=== PATIENT | male | born 1945 | race Caucasian/White ===

== ENCOUNTER → 2023-09-28 | Outpatient (CLI) | payer MEDICARE | END | disposition home or self-care (01) | LOC: SHCH 10:12 | PROVIDERS: ATTEND Internal Medicine Cardiovascular Disease | DX: I87.2 Venous insufficiency (chronic) (peripheral) (principal); I73.9 Peripheral vascular disease, unspecified | CPT/HCPCS: 93925; 93970 ==

== ENCOUNTER 2024-03-12 07:30 | Day surgery (SDC) | payer MEDICARE ==
[2024-03-07 13:20] LABS: CREATININE 0.8 mg/dL (0.5-1.3); POTASSIUM 4.8 mmol/L (3.5-5.1)
[2024-03-07 13:21] LABS: BASOPHILS # (AUTO) 0.07 K/uL (0.00-0.20); BASOPHILS % (AUTO) 1.7 % (0.0-5.0); EOSINOPHILS # (AUTO) 0.19 K/uL (0.00-0.70); EOSINOPHILS % (AUTO) 4.5 % (0.0-8.0); HEMATOCRIT 42.1 % (42-54); IMMATURE GRANULOCYTE ABSOLUTE 0.01 K/uL (0-1); LYMPHOCYTES # (AUTO) 1.1 K/uL (1.0-4.8); LYMPHOCYTES % (AUTO) 25.3 % (21.0-51.0); MEAN CORPUSCULAR HEMOGLOBIN 32.9 pg (27.0-33.0); MEAN CORPUSCULAR HGB CONC 33.3 g/dL (32.0-36.0); MEAN CORPUSCULAR VOLUME 98.8 fL (79-99); MONOCYTES # (AUTO) 0.3 K/uL (0.1-1.0); MONOCYTES % (AUTO) 7.4 % (3.0-13.0); NEUTROPHILS # (AUTO) 2.6 K/uL (1.8-7.7); NEUTROPHILS % (AUTO) 60.9 % (40.0-77.0); PLATELET COUNT (AUTO) 135 K/uL (130-400); RED BLOOD CELL COUNT(AUTO) 4.26 MIL/uL (4.50-6.20); RED CELL DISTRIBUTION WIDTH 14.2 % (11.0-15.5); WHITE BLOOD COUNT (AUTO) 4.2 K/uL (4.8-10.8)
[2024-03-07 13:22] VITALS: BP 111/65; PULSE 65; RESP 17
[2024-03-07 13:22] LABS: INR 1.16 (0.85-1.15); PROTHROMBIN TIME 13.5 SEC (9.6-11.6)
[~2024-03-12] VITALS: Ht 182.9 cm; Wt 81.7 kg
[2024-03-12] VITALS (18 sets, daily range): BP systolic 112–129; BP diastolic 72–86; PULSE 61–98; RESP 13–18
[~2024-03-12 07:30] MED LIST: LEVE500T19 PO; METO50 PO
[2024-03-12] MEDS ORDERED: LACTATED RINGERS 1000ML 1,000 ML IV ONE (08:46)
[2024-03-12] MEDS ORDERED: CEFAZOLIN SODIUM 2 GM VIAL ONE (08:46)
[2024-03-12] MEDS ORDERED: ACETAMINOPHEN 1,000 MG/100 ML VIAL IV ONE (08:55)
[2024-03-12] MEDS ORDERED: FAMOTIDINE 20MG VIAL IV ONE (08:55)
[2024-03-12] MEDS ORDERED: PROPOFOL 10 MG/ML 20ML VIAL IV ONE (08:59)
[2024-03-12] MEDS ORDERED: LIDOCAINE PF 100MG/5ML (2%) SYRINGE 5ML ONE (08:59)
[2024-03-12] MEDS ORDERED: ROCURONIUM BROMIDE 10MG/1ML 5ML VL ONE (08:59)
[2024-03-12] MEDS ORDERED: FENTANYL CITRATE PF 50 MCG/1 ML 2ML VIAL ONE (09:00)
[2024-03-12] MEDS ORDERED: BUPIVACAINE/PF 0.5% 30ML VIAL ONE (09:03)
[2024-03-12] MEDS ORDERED: DEXAMETHASONE SOD PHOSPHATE 10MG/ML 1ML VIAL ONE (09:27)
[2024-03-12] MEDS ORDERED: ONDANSETRON 4MG INJ ONE (09:27)
[2024-03-12] MEDS: CEFAZOLIN SODIUM 2 GM VIAL IVPB ONE (09:40)
[2024-03-12] MEDS ORDERED: EPHEDRINE SULFATE 50 MG/ML AMPULE ONE (09:42)
[2024-03-12] MEDS ORDERED: GLYCOPYRROLATE 0.2 MG/ML 5 ML VIAL ONE (09:46)
[2024-03-12] MEDS ORDERED: NEOSTIGMINE METHYLSULFATE 1MG/ML IV ONE (09:46)
[2024-03-12] MEDS ORDERED: PHENYLEPHRINE HCL 10 MG/ML 1ML VIAL IV ONE (10:39)
[2024-03-12] MEDS ORDERED: METOPROLOL TARTRATE 1 MG/ML 5ML VIAL IV ONE ×2 (10:43→11:01)
[2024-03-12] MEDS ORDERED: DOCU-116 PO (10:49)
[2024-03-12] MEDS ORDERED: TRAM50TA4 PO (10:49)
[2024-03-12] MEDS ORDERED: METH-662 PO (10:49)
[2024-03-12] MEDS ORDERED: GABA-529 PO (10:49)
== END 2024-03-12 13:01 | disposition home or self-care (01) ==
LOC: DAH 07:30
PROVIDERS: ATTEND Surgery
DX: K40.90 Unilateral inguinal hernia, without obstruction or gangrene, not specified as recurrent (principal); I10 Essential (primary) hypertension; I48.91 Unspecified atrial fibrillation; Z79.01 Long term (current) use of anticoagulants; Z79.899 Other long term (current) drug therapy
CPT/HCPCS: 80048; 85025; 85610; 85730; 36415; 93005; 49650; A6260; A4663; J7030; J7120; J3490 ×7; J3010; J1100; J2001; J2704; J2405; J2710; J0665; J2371; J0690 ×2; C9250; A4649 ×3; A4930 ×2; C1781; A4215; A4223; A4222; A4221; A4600

== ENCOUNTER → 2024-12-24 | Outpatient (CLI) | payer MEDICARE ==
[~2024-12-24] MED LIST changes: +DOCU-116 PO; +GABA-529 PO; +METH-662 PO; +TRAM50TA4 PO
--- NOTE | 2024-12-24 10:35 | HMCSR ---
APPROVED REPORT Indications PVD Duplex Results A/PTransverseLongitudinalVelocityWaveform Proximal Aorta 1.97cm1.84cm1.82cm79.30 cm/sec Mid Aorta 2.06cm2.04cm2.09cm73.10 cm/sec Distal Aorta 1.88cm2.06cm2.01cm53.10 cm/sec Rt. Common Iliac Artery1.08cm1.24cm1.04cm76.90 cm/sec Lt. Common Iliac Artery 1.13cm1.19cm1.55cj801.10 cm/sec Techologist Impression The abdominal aorta and the proximal portion of the right and left common iliac arteries were examine d utilizing duplex ultrasonography. The abdominal aorta and the right and left common iliac arteries are patent and normal in size withou t evidence of aneurysm; however, there is evidence of mild atherosclerotic disease. Conclusion There was no evidence of iliac artery atherosclerosis of physiologic significance No evidence of abdominal aortic aneurysm Conclusion There was no evidence of iliac artery atherosclerosis of physiologic significance No evidence of abdominal aortic aneurysm
== END | disposition home or self-care (01) ==
LOC: SHCH 08:04
PROVIDERS: ATTEND Internal Medicine Cardiovascular Disease
DX: I73.9 Peripheral vascular disease, unspecified (principal); I70.0 Atherosclerosis of aorta
CPT/HCPCS: 93978